=== PATIENT | male | born 1960 | race Caucasian/White ===

== ENCOUNTER 2018-03-12 17:47 | Emergency (ER) | payer MEDICAID ==
[2018-03-12] MEDS ORDERED: cephALEXin 250 MG CAPSULE PO STA (18:16)
[2018-03-12] MEDS ORDERED: MELOXICAM 7.5 MG TABLET PO STA (18:16)
--- NOTE | 2018-03-12 18:59 | ED Physician Documentation ---
History of Present Illness - Stated complaint Stated Complaint: BILAT HAND WOUNDS/ITCHY - Chief complaint Chief Complaint: General - History obtained from History obtained from: Patient - History of Present Illness Timing: Other (1 year) Pain level max: 8 Pain level now: 8 Improved by: rest Worsened by: walking - Additonal information Additional information: Patient is visiting from [facility] and states has sores on his arms and legs for past year. States fell a few days ago in a [place] and injured his B feet and R ribs. Pain worse with movement and taking a deep breath. Better with rest. Patient states that he has been on multiple antibiotics as well as seen dermatology and had biopsies with no cause found for the sores on his arms and legs Review of Systems Ten Systems: 10 systems reviewed and negative Constitutional: denies: Fever, Chills Ears: denies: Ear pain Nose: denies: Rhinorrhea / runny nose, Congestion Respiratory: denies: Cough GI: denies: Abdominal Pain, Nausea, Vomiting, Diarrhea : denies: Dysuria, Frequency, Hesitancy Musculoskeletal: denies: Neck pain, Back pain Neurologic: denies: Headache PD PAST MEDICAL HISTORY - Past Medical History Past Medical History: No - Past Surgical History Past Surgical History: No - Present Medications Home Medications: Ambulatory Orders Medication Instructions Recorded Confirmed Cephalexin [Keflex] 500 mg PO Q6H #28 capsule 03/12/18 Meloxicam [Mobic] 15 mg PO DAILY PRN #20 tablet 03/12/18 - Allergies Allergies/Adverse Reactions: Allergies Allergy/AdvReac Type Severity Reaction Status Date / Time No Known Drug Allergies Allergy Verified 03/12/18 17:55 - Social History Does the pt smoke?: No Smoking Status: Never smoker Does the pt drink ETOH?: Yes ETOH Use: Beer Does the pt have substance abuse?: No - Immunizations Immunizations: TDAP >10years/unknown, Other immun current PD ED PE NORMAL - Vitals Vital signs reviewed: Yes - General General: Alert and oriented X 3, No acute distress - HEENT HEENT: Moist mucous membranes - Neck Neck: Supple, no meningeal sign - Cardiac Cardiac: RRR, Strong equal pulses - Respiratory Respiratory: No respiratory distress, Clear bilaterally - Abdomen Abdomen: Soft, Non tender, Non distended - Derm Derm: Warm and dry, Other (diffuse skin picking over the arms and legs and face. ) - Extremities Extremities: Other (TTP over the B feet diffusely. NVI. diffuse scratches and erythema. ) - Neuro Neuro: Alert and oriented X 3 - Psych Psych: Normal mood, Normal affect Results - Vitals Vitals: Vital Signs - 24 hr 18 03/12/18 17:50 19:38 Temperature 36.4 C L 36.8 C Heart Rate 106 H 85 Respiratory 22 16 Rate Blood Pressure 122/78 130/82 H O2 Saturation 100 100 Oxygen O2 Source Room air - Rads (name of study) B foot xray Radiology: Prelim report reviewed, EMP read contemporaneously, See rad report (Oblique minimally displaced fracture proximal phalanx right fifth digit. No evidence of left foot fracture. ) R ribs with CXR Radiology: Prelim report reviewed, EMP read contemporaneously, See rad report (Equivocal irregularity of the right fifth rib anteriorly, clinical correlation for point tenderness at this level. No evidence of pneumothorax. Old healed left midclavicular fracture and left 10th rib fracture. ) PD MEDICAL DECISION MAKING - ED course Complexity details: reviewed results, re-evaluated patient, considered differential, d/w patient ED course: Patient is a 58-year-old male with several issues. The first appears to be a cellulitis of bilateral feet, this is mild at this time. No drainable abscess. He also has a right fifth toe fracture. He declines any treatment for this. 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 No evidence of infection at this time. We will have him follow-up with his doctor for further care. Patient counseled regarding signs and symptoms for which I believe and urgent re-evaluation would be necessary. Patient with good understanding of and agreement to plan and is comfortable going home at this time This document was made in part using voice recognition software. While efforts are made to proofread this document, sound alike and grammatical errors may occur. - Sepsis Event Vital Signs: Vital Signs - 24 hr 18 03/12/18 17:50 19:38 Temperature 36.4 C L 36.8 C Heart Rate 106 H 85 Respiratory 22 16 Rate Blood Pressure 122/78 130/82 H O2 Saturation 100 100 Oxygen O2 Source Room air Departure - Departure Disposition: 01 Home, Self Care Clinical Impression: Cellulitis Qualifiers: Site of cellulitis: unspecified site Qualified Code(s): L03.90 - Cellulitis, unspecified Condition: Good Instructions: ED Infec Skin Cellulitis Follow-Up: Rubio Rick MD [Primary Care Provider] - Within 1 week Prescriptions: Cephalexin [Keflex] 500 mg PO Q6H #28 capsule Meloxicam [Mobic] 15 mg PO DAILY PRN #20 tablet PRN Reason: pain Comments: Return if you worsen. This should improve over the next few days. Take the antibiotics as prescribed. Discharge Date/Time: 03/12/18 20:13
[2018-03-12 19:42] VITALS: BP 130/82
--- NOTE | 2018-03-12 19:44 | XRAY Report ---
Reason: fall, R rib pain Procedure Date: 03/12/2018 Accession Number: [id number] / [id number] Procedure: XR - Ribs w/PA Chest RT CPT Code: FULL RESULT: EXAM: RIGHT RIB RADIOGRAPHY EXAM DATE: 03/12/2018 07:23 PM. CLINICAL HISTORY: Fall, right rib pain. COMPARISON: None. TECHNIQUE: 1 view of the chest and 2 views of the ribs. FINDINGS: Bones: Old healed left midclavicular fracture. Old left 10th rib fracture posteriorly. Equivocal irregularity at the right fifth rib anteriorly. Lungs: No focal opacities. No pneumothorax. No pleural effusions. Mediastinum: Heart and mediastinal contours are unremarkable. Other: None. IMPRESSION: 1. Equivocal irregularity of the right fifth rib anteriorly, clinical correlation for point tenderness at this level. No evidence of pneumothorax. 2. Old healed left midclavicular fracture and left 10th rib fracture. RADIA
--- NOTE | 2018-03-12 19:47 | XRAY Report ---
Reason: fall, B foot pain Procedure Date: 03/12/2018 Accession Number: [id number] / [id number] Procedure: XR - Foot 3 View BILAT CPT Code: FULL RESULT: EXAMS: 1. Right Foot Radiography 2. Left Foot Radiography EXAM DATE: 03/12/2018 07:23 PM. CLINICAL HISTORY: Fall, bilateral foot pain. COMPARISON: None. TECHNIQUE: 3 views each foot. FINDINGS: Right: Bones: There is an oblique fracture proximal phalanx right fifth digit with 1 mm lateral displacement of the distal fracture fragment. Joints: Joint space narrowing with small osteophytes at the first metatarsophalangeal joint and third distal interphalangeal joint. Soft Tissues: Normal. No soft tissue swelling. Left: Bones: Normal. No fractures or bone lesions. Joints: Joint space narrowing with prominent osteophytes the first metatarsophalangeal joint. Soft Tissues: Normal. No soft tissue swelling. IMPRESSION: 1. Oblique minimally displaced fracture proximal phalanx right fifth digit. 2. No evidence of left foot fracture. RADIA
== END 2018-03-12 20:13 | disposition home or self-care (01) ==
LOC: ED 17:47
DX: L03.116 Cellulitis of left lower limb (principal); L03.115 Cellulitis of right lower limb; S92.351A Displaced fracture of fifth metatarsal bone, right foot, initial encounter for closed fracture; W19.XXXA Unspecified fall, initial encounter; F42.4 Excoriation (skin-picking) disorder; F15.90 Other stimulant use, unspecified, uncomplicated
CPT/HCPCS: 71101; 73630; 99283; A9270